=== PATIENT | male | born 1970 | race Caucasian/White ===

== ENCOUNTER 2016-09-03 12:30 | Emergency (ER) | payer SELFPAY ==
[~2016-09-03] VITALS: Ht 167.6 cm; Wt 93.6 kg
[2016-09-03] MEDS ORDERED: IBUPROFEN 800 MG TABLET PO ONE (13:15)
[2016-09-03 13:45] VITALS: BP 142/87
== END 2016-09-03 13:46 | disposition home or self-care (01) ==
LOC: EMS 12:33
DX: M70.22 Olecranon bursitis, left elbow (principal); Y93.H2 Activity, gardening and landscaping
CPT/HCPCS: 99283

== ENCOUNTER 2019-09-16 17:23 | Inpatient (IN) | payer MEDICAID ==
[~2019-09-16] VITALS: Ht 165.1 cm; Wt 90.7 kg
[2019-09-16] MEDS ORDERED: ACET-66 PO (17:27)
[2019-09-16] MEDS ORDERED: LOSA50TA37 PO (17:27)
[2019-09-16] MEDS ORDERED: SODIUM CHLORIDE 0.9% 2,700 ML IV ONE (18:24)
[2019-09-16] MEDS ORDERED: ACETAMINOPHEN 500 MG TABLET PO ONE (18:30)
[2019-09-16] MEDS ORDERED: 0.9% SODIUM CHLORIDE 10 ML SYRINGE IVP PRN ×2 (18:30→20:15)
[2019-09-16 19:13] LABS: ALANINE AMINOTRANSFERASE 22 U/L (12-78); ALBUMIN 3.9 g/dL (3.4-5.0); ALKALINE PHOSPHATASE 104 U/L (46-116); ANION GAP 13 mmol/L (8-16); ASPARTATE AMINOTRANSFERASE 14 U/L (15-37); BASOPHILS % (AUTO) 0.4 % (0.0-2.0); BILIRUBIN,TOTAL 0.8 mg/dL (0.1-1.0); CALCIUM, TOTAL 9.9 mg/dL (8.8-10.5); CARBON DIOXIDE 26 mmol/L (22-29); CHLORIDE 98 mmol/L (98-107); CREATININE 0.92 mg/dL (0.60-1.30); EOSINOPHILS % (AUTO) 0.1 % (1.0-6.0); GLOMERULAR FILTR. RATE CALC > 60 mL/min (>60); GLUCOSE,RANDOM 119 mg/dL (70-110); HEMATOCRIT 46.1 % (41-53); HEMOGLOBIN 15.8 g/dL (13.5-17.5); LIPASE 64 U/L (73-393); LYMPHOCYTES # (AUTO) 0.9 K/uL (1.0-4.8); MEAN CORPUSCULAR HEMOGLOBIN 29.3 pg (26.0-34.0); MEAN CORPUSCULAR HGB CONC 34.3 G/dL (31.0-37.0); MEAN CORPUSCULAR VOLUME 85 fL (80-100); MONOCYTES # (AUTO) 0.7 K/uL (0.1-1.0); MONOCYTES % (AUTO) 3.6 % (2.0-9.0); NEUTROPHILS # (AUTO) 16.7 K/uL (1.8-7.7); PLATELET COUNT (AUTO) 429 K/uL (150-450); POTASSIUM 3.6 mmol/L (3.5-5.1); RED BLOOD CELL COUNT(AUTO) 5.41 MIL/uL (4.50-5.90); RED CELL DISTRIBUTION WIDTH 12.5 % (11.5-14.5); SODIUM SERUM 137 mmol/L (136-145); TOTAL PROTEIN, SERUM 8.9 g/dL (6.4-8.2); UREA NITROGEN, BLOOD 15 mg/dL (7-18)
[2019-09-16 19:16] LABS: NEUTROPHILS % (AUTO) 90.9 % (40.0-70.0)
[2019-09-16 19:21] LABS: PROTHROMBIN TIME 10.7 SEC (9.4-11.6)
[2019-09-16] MEDS ORDERED: CefTRIAXone 1 GM/DEXTROSE 50 ML IV ONE (19:30)
[2019-09-16] MEDS ORDERED: AZITHROMYCIN 500 MG/NS 250 ML IV ONE (19:30)
[2019-09-16 19:52] LABS: INFLUENZA TYPE A NEGATIVE FOR TYPE A (NEGATIVE); INFLUENZA TYPE B NEGATIVE FOR TYPE B (NEGATIVE)
[2019-09-16] MEDS ORDERED: ACETAMINOPHEN 325 MG TABLET PO PRN (20:15)
[2019-09-16 20:28] LABS: D-DIMER 0.23 mg/L FEU (0.00-0.50)
[2019-09-16 20:49] LABS: C-REACTIVE PROTEIN QUANT 20.56 mg/dL (0.00-0.30); CREATINE KINASE, TOTAL ONLY 75 U/L (39-308); FERRITIN 645 ng/mL (26-388); LACTATE DEHYDROGENASE 243 U/L (85-227)
[2019-09-16 22:36] VITALS: BP 152/82
[2019-09-17 01:23] VITALS: BP 152/94
[2019-09-17] MEDS ORDERED: MAGNESIUM HYDROXIDE SUSPENSION 30 ML UDCUP PO PRN (04:00)
[2019-09-17] MEDS ORDERED: 0.9% SODIUM CHLORIDE 10 ML SYRINGE IVP PRN (04:00)
[2019-09-17] MEDS ORDERED: OxyCODONE HCL/ACETAMINOPHEN 5-325 MG TABLET PO PRN ×2 (04:00)
[2019-09-17 05:28] VITALS: BP 146/85
[2019-09-17 07:13] LABS: ALANINE AMINOTRANSFERASE 18 U/L (12-78); ALKALINE PHOSPHATASE 83 U/L (46-116); ANION GAP 11 mmol/L (8-16); ASPARTATE AMINOTRANSFERASE 14 U/L (15-37); BILIRUBIN,TOTAL 0.7 mg/dL (0.1-1.0); CALCIUM, TOTAL 8.6 mg/dL (8.8-10.5); CARBON DIOXIDE 24 mmol/L (22-29); CHLORIDE 102 mmol/L (98-107); CREATININE 0.62 mg/dL (0.60-1.30); GLOMERULAR FILTR. RATE CALC > 60 mL/min (>60); GLUCOSE,RANDOM 115 mg/dL (70-110); POTASSIUM 3.4 mmol/L (3.5-5.1); SODIUM SERUM 137 mmol/L (136-145); TOTAL PROTEIN, SERUM 7.3 g/dL (6.4-8.2); UREA NITROGEN, BLOOD 11 mg/dL (7-18)
[2019-09-17 08:07] VITALS: BP 148/88
[2019-09-17] MEDS ORDERED: HEPARIN SODIUM,PORCINE 5,000 UNITS/ML VIAL SQ SCH (09:00)
[2019-09-17] MEDS: ACETAMINOPHEN 325 MG TABLET PO PRN ×2 (09:29→16:48)
[2019-09-17] MEDS: FAMOTIDINE 10 MG/ML 2 ML VIAL IVP SCH (09:30)
[2019-09-17] MEDS: DOCUSATE SODIUM 100 MG CAPSULE PO SCH ×2 (09:31→21:00)
[2019-09-17] MEDS ORDERED: *CLINICAL-LEVOFLOXACIN IVPB DOSING CLINICAL ONE (10:45)
[2019-09-17 10:49] VITALS: BP 153/88
[2019-09-17] MEDS ORDERED: SODIUM CHLORIDE 0.9% 100 ML ONE (11:14)
[2019-09-17] MEDS ORDERED: IOVERSOL 350 MG/ML 100 ML VIAL ONE (11:14)
[2019-09-17 12:43] LABS: D-DIMER 0.44 mg/L FEU (0.00-0.50)
[2019-09-17] MEDS ORDERED: POTASSIUM CHLORIDE 20 MEQ ER TABLET PO ONE (12:45)
[2019-09-17 12:57] LABS: C-REACTIVE PROTEIN QUANT 19.48 mg/dL (0.00-0.30)
[2019-09-17] MEDS ORDERED: SODIUM CHLORIDE 0.9% 250 ML IV ONE (13:57)
[2019-09-17] MEDS: LOSARTAN POTASSIUM 50 MG TABLET PO SCH (14:08)
[2019-09-17] MEDS: LEVOFLOXACIN 750 MG/D5% WATER 150 ML IV SCH (14:09)
[2019-09-17] MEDS: HEPARIN SODIUM,PORCINE 5,000 UNITS/ML VIAL SQ SCH (16:00)
[2019-09-17 17:13] VITALS: BP 125/95
[2019-09-17 19:45] VITALS: BP 145/88
[2019-09-17] MEDS ORDERED: CefTRIAXone 1 GM/DEXTROSE 50 ML IV SCH (20:00)
[2019-09-17] MEDS ORDERED: AZITHROMYCIN 500 MG/NS 250 ML IV SCH (21:00)
[2019-09-17] MEDS ORDERED: DOXYCYCLINE HYCLATE 100 MG TABLET PO SCH (21:00)
[2019-09-17 23:25] LABS: APPEARANCE,URINE CLEAR (CLEAR); BILIRUBIN,URINE NEGATIVE (NEGATIVE); GLUCOSE, URINE (UA) NEGATIVE (NEGATIVE); KETONES,URINE NEGATIVE (NEGATIVE); LEUKOCYTE ESTERASE ,URINE NEGATIVE (NEGATIVE); NITRATE,URINE NEGATIVE (NEGATIVE); OCCULT BLOOD,URINE NEGATIVE (NEGATIVE); PH,URINE 6.5 (5.0-8.0); PROTEIN,URINE NEGATIVE (NEGATIVE)
[2019-09-18 00:48] VITALS: BP 141/96
[2019-09-18] MEDS: ACETAMINOPHEN 325 MG TABLET PO PRN ×2 (02:48→10:16)
[2019-09-18 04:46] VITALS: BP 140/84
[2019-09-18 08:14] LABS: BASOPHILS % (AUTO) 0.4 % (0.0-2.0); EOSINOPHILS % (AUTO) 0.1 % (1.0-6.0); HEMATOCRIT 40.7 % (41-53); HEMOGLOBIN 14.3 g/dL (13.5-17.5); LYMPHOCYTES # (AUTO) 1.1 K/uL (1.0-4.8); LYMPHOCYTES % (AUTO) 7.1 % (22.0-44.0); MEAN CORPUSCULAR HEMOGLOBIN 29.6 pg (26.0-34.0); MEAN CORPUSCULAR HGB CONC 35.1 G/dL (31.0-37.0); MEAN CORPUSCULAR VOLUME 84 fL (80-100); MONOCYTES # (AUTO) 0.4 K/uL (0.1-1.0); MONOCYTES % (AUTO) 2.6 % (2.0-9.0); NEUTROPHILS # (AUTO) 14.2 K/uL (1.8-7.7); PLATELET COUNT (AUTO) 379 K/uL (150-450); RED BLOOD CELL COUNT(AUTO) 4.83 MIL/uL (4.50-5.90)
[2019-09-18 08:18] LABS: ANION GAP 14 mmol/L (8-16); CALCIUM, TOTAL 9.1 mg/dL (8.8-10.5); CARBON DIOXIDE 24 mmol/L (22-29); CHLORIDE 99 mmol/L (98-107); CREATININE 0.65 mg/dL (0.60-1.30); GLOMERULAR FILTR. RATE CALC > 60 mL/min (>60); GLUCOSE,RANDOM 107 mg/dL (70-110); POTASSIUM 3.2 mmol/L (3.5-5.1); SODIUM SERUM 137 mmol/L (136-145); UREA NITROGEN, BLOOD 10 mg/dL (7-18)
[2019-09-18 08:25] LABS: NEUTROPHILS % (AUTO) 89.8 % (40.0-70.0)
[2019-09-18 09:25] VITALS: BP 151/103
[2019-09-18] MEDS: FAMOTIDINE 10 MG/ML 2 ML VIAL IVP SCH (10:13)
[2019-09-18] MEDS: HEPARIN SODIUM,PORCINE 5,000 UNITS/ML VIAL SQ SCH ×3 (10:13→16:08)
[2019-09-18] MEDS: DOCUSATE SODIUM 100 MG CAPSULE PO SCH ×2 (10:14→20:55)
[2019-09-18] MEDS: LOSARTAN POTASSIUM 50 MG TABLET PO SCH (10:14)
[2019-09-18] MEDS: LEVOFLOXACIN 750 MG/D5% WATER 150 ML IV SCH (11:19)
[2019-09-18 12:00] VITALS: BP 152/90
[2019-09-18] MEDS ORDERED: POTASSIUM CHL 10 MEQ/WATER 50 ML IV PRN (14:30)
[2019-09-18] MEDS ORDERED: POTASSIUM CHLORIDE 20 MEQ ER TABLET PO PRN (14:30)
[2019-09-18] MEDS ORDERED: MAG HYDROX/AL HYDROX/SIMETH 30 ML SUSP UDCUP PO PRN (14:30)
[2019-09-18 16:35] VITALS: BP 157/92
[2019-09-18 20:44] VITALS: BP 155/100
[2019-09-19 00:30] VITALS: BP 148/92
[2019-09-19 03:13] VITALS: BP 153/95
[2019-09-19 06:59] LABS: BASOPHILS % (AUTO) 0.1 % (0.0-2.0); EOSINOPHILS % (AUTO) 0.1 % (1.0-6.0); HEMATOCRIT 39.8 % (41-53); HEMOGLOBIN 13.8 g/dL (13.5-17.5); LYMPHOCYTES # (AUTO) 0.8 K/uL (1.0-4.8); LYMPHOCYTES % (AUTO) 4.7 % (22.0-44.0); MEAN CORPUSCULAR HEMOGLOBIN 29.2 pg (26.0-34.0); MEAN CORPUSCULAR HGB CONC 34.8 G/dL (31.0-37.0); MEAN CORPUSCULAR VOLUME 84 fL (80-100); MONOCYTES # (AUTO) 0.4 K/uL (0.1-1.0); MONOCYTES % (AUTO) 2.6 % (2.0-9.0); NEUTROPHILS # (AUTO) 15.3 K/uL (1.8-7.7); PLATELET COUNT (AUTO) 421 K/uL (150-450); RED BLOOD CELL COUNT(AUTO) 4.74 MIL/uL (4.50-5.90); RED CELL DISTRIBUTION WIDTH 12.5 % (11.5-14.5)
[2019-09-19 07:21] LABS: ANION GAP 13 mmol/L (8-16); CALCIUM, TOTAL 9.1 mg/dL (8.8-10.5); CARBON DIOXIDE 23 mmol/L (22-29); CHLORIDE 97 mmol/L (98-107); GLOMERULAR FILTR. RATE CALC > 60 mL/min (>60); GLUCOSE,RANDOM 132 mg/dL (70-110); POTASSIUM 3.5 mmol/L (3.5-5.1); SODIUM SERUM 133 mmol/L (136-145); UREA NITROGEN, BLOOD 12 mg/dL (7-18)
[2019-09-19 07:28] LABS: NEUTROPHILS % (AUTO) 92.5 % (40.0-70.0)
[2019-09-19 08:19] VITALS: BP 168/111
[2019-09-19] MEDS: FAMOTIDINE 10 MG/ML 2 ML VIAL IVP SCH (08:20)
[2019-09-19] MEDS: LOSARTAN POTASSIUM 50 MG TABLET PO SCH (08:20)
[2019-09-19] MEDS: HEPARIN SODIUM,PORCINE 5,000 UNITS/ML VIAL SQ SCH ×3 (08:21→16:00)
[2019-09-19] MEDS: DOCUSATE SODIUM 100 MG CAPSULE PO SCH (08:36)
[2019-09-19] MEDS ORDERED: CLIN300C3 PO (10:21)
[2019-09-19] MEDS ORDERED: LEVO750T68 PO (10:21)
[2019-09-19] MEDS ORDERED: AMLO5TAB4 PO (10:21)
[2019-09-19 10:47] VITALS: BP 147/92
[2019-09-19] MEDS: LEVOFLOXACIN 750 MG/D5% WATER 150 ML IV SCH (11:30)
[2019-09-19 15:44] VITALS: BP 150/89
[2019-09-23 10:22] LABS: LEGIONELLA PNEUMO AG URINE Negative (Negative); ORGANISM ID Not indicated.; S PNEUMO SOURCE Urine; STREP PNEUMONIAE AG URINE Negative (Negative); STREP.PNEUMO BODY FLUID CULT. Not indicated.
== END 2019-09-19 16:45 | disposition home or self-care (01) | DRG 720 ==
LOC: EMS 17:23 → 5N 20:00
PROVIDERS: ADMIT Internal Medicine; ATTEND Internal Medicine
DX: A41.9 Sepsis, unspecified organism (principal); J18.9 Pneumonia, unspecified organism; I10 Essential (primary) hypertension; Z20.828 Contact with and (suspected) exposure to other viral communicable diseases; Z87.891 Personal history of nicotine dependence
CPT/HCPCS: 71260; 72193; 74160; 82728; 83605; 83615; 84132; 84145; 85379; 85384; 86140; 87040; 87449; 87804; 87899; 93005; 93306; J0456; J0696; J1644; J1956; J3490; J7030; J7050